=== PATIENT | male | born 1975 | race Caucasian/White ===

== ENCOUNTER 2018-09-22 23:46 | Inpatient (IN) | payer OTHER ==
[~2018-09-22] VITALS: Ht 177.8 cm; Wt 108.9 kg
[2018-09-22 23:57] VITALS: Ht 177.8 cm; Wt 108.9 kg
[2018-09-23 00:35] LABS: CALCIUM 8.5 mg/dL (8.5-10.1); CARBON DIOXIDE 26.9 mmol/L (21-32); CHLORIDE SERUM 104 mmol/L (98-107); GFR1 > 60 mL/min; GLUCOSE SERUM 117 mg/dL (74-106); POTASSIUM SERUM 3.6 mmol/L (3.5-5.1); SODIUM SERUM 137 mmol/L (136-145)
[2018-09-23 00:37] LABS: BASOPHIL % 0.4 % (0-2); PLATELET COUNT 261 x10^3mcL (130-400); RED CELL DISTRIBUTION WIDTH 14.2 % (11.5-14.5)
[2018-09-23 00:39] LABS: ALBUMIN 3.7 g/dL (3.4-5.0); ALKALINE PHOSPHATASE 70 U/L (46-116); ALT/SGPT 23 U/L (16-63); AST/SGOT 10 U/L (15-37); BILIRUBIN TOTAL 0.2 mg/dL (0.20-1.00); LIPASE 212 IU/L (73-393); TOTAL PROTEIN, SERUM 7.3 g/dL (6.4-8.2); TRIGLYCERIDES 175 mg/dL (<150)
[2018-09-23 00:40] LABS: CHOLESTEROL 96 mg/dL (<200); CHOLESTEROL/HDL RATIO 2.8; HDL CHOLESTEROL 34 mg/dL (40-60)
[2018-09-23 01:43] LABS: AMPHETAMINE QUAL UR NONE DETECTED (See below)
[2018-09-23 09:31] LABS: T3 TOTAL 1.03 ng/mL
[2018-09-23 09:32] LABS: microscopic required? NO
[2018-09-23] MEDS ORDERED: ABILIFY (09:38)
[2018-09-23] MEDS ORDERED: [UNRECOGNIZED DRUG - OTHER] (09:38)
[2018-09-23] MEDS ORDERED: CLOZAPINE (09:40)
[2018-09-23 09:44] LABS: PHOSPHOROUS 3.5 mg/dL (2.5-4.9)
[2018-09-23 10:14] LABS: FREE T4 0.86 ng/dL (0.76-1.46); T4(THYROXINE) 6.1 ug/dL (4.7-13.3)
[2018-09-23 10:16] LABS: UA SPECIFIC GRAVITY 1.015 (1.005-1.035); urine erythrocyte NEGATIVE (NEGATIVE)
[2018-09-23 11:41] VITALS: BP 136/81
[2018-09-23 17:55] VITALS: BP 126/88
[2018-09-23 21:55] VITALS: BP 126/69
[2018-09-24 05:26] VITALS: BP 106/59
[2018-09-24 07:23] LABS: CALCIUM 8.9 mg/dL (8.5-10.1); CARBON DIOXIDE 28.9 mmol/L (21-32); CHLORIDE SERUM 104 mmol/L (98-107); CREATININE SERUM 0.9 mg/dL (0.7-1.3); GFR1 > 60 mL/min; GLUCOSE SERUM 135 mg/dL (74-106); MAGNESIUM 1.9 mg/dL (1.8-2.4); PHOSPHOROUS 3.5 mg/dL (2.5-4.9); POTASSIUM SERUM 4.3 mmol/L (3.5-5.1); SODIUM SERUM 142 mmol/L (136-145)
[2018-09-24 07:42] LABS: BASOPHIL % 0.3 % (0-2); PLATELET COUNT 263 x10^3mcL (130-400); RED CELL DISTRIBUTION WIDTH 14.5 % (11.5-14.5)
[2018-09-24 08:00] VITALS: BP 128/76
[2018-09-24] MEDS ORDERED: METFORMIN HCL1000 MG PO (12:14)
[2018-09-24 13:10] VITALS: BP 118/87
[2018-09-24 14:13] VITALS: BP 118/87
[2018-09-24] MEDS ORDERED: COLACE100 MG PO (14:32)
== END 2018-09-24 15:45 | disposition home or self-care (01) | DRG 885 ==
LOC: ED 23:46 → DU 09-23 07:51 → EDBEDREQ 09-23 08:00 → DU 09-23 11:19
PROVIDERS: Family Medicine; Specialist
DX: F20.9 Schizophrenia, unspecified (principal); J98.11 Atelectasis; I45.81 Long QT syndrome; E11.9 Type 2 diabetes mellitus without complications; E78.1 Pure hyperglyceridemia; E78.5 Hyperlipidemia, unspecified; F13.10 Sedative, hypnotic or anxiolytic abuse, uncomplicated; Z79.899 Other long term (current) drug therapy; Z68.34 Body mass index [BMI] 34.0-34.9, adult; Z79.84 Long term (current) use of oral hypoglycemic drugs
CPT/HCPCS: 82962; 83880; 84439; 94150; G0480; J1630; J7030; Q0092